=== PATIENT | male | born 1940 | race Caucasian/White ===

== ENCOUNTER → 2018-03-09 | Outpatient (CLI) | payer OTHER | LOC: FIMAGING 14:08 | PROVIDERS: ATTEND Internal Medicine | DX: I87.1 Compression of vein (principal) ==

== ENCOUNTER → 2018-03-15 | Outpatient (CLI) | payer OTHER ==
[~2018-03-15] MED LIST: IOPAMIDOL (ISOVUE-300) 100 ML BTL ONE
== END ==
LOC: FIMAGING 07:30
PROVIDERS: ATTEND Internal Medicine
DX: I87.1 Compression of vein (principal)
CPT/HCPCS: 71260; Q9967; 82565-PO

== ENCOUNTER → 2018-04-02 | Outpatient (CLI) | payer OTHER ==
[~2018-04-02] MED LIST changes: +IOPAMIDOL (ISOVUE 370) 100 ML BTL IV ONE; -IOPAMIDOL (ISOVUE-300) 100 ML BTL ONE
== END ==
LOC: FIMAGING 13:03
PROVIDERS: ATTEND Surgery
DX: I87.1 Compression of vein (principal); I86.8 Varicose veins of other specified sites; K57.30 Diverticulosis of large intestine without perforation or abscess without bleeding
CPT/HCPCS: 74174; Q9967

== ENCOUNTER 2018-05-27 07:22 | Day surgery (SDC) | payer OTHER ==
[2018-05-27] MEDS ORDERED: IOPAMIDOL (ISOVUE-300) 100 ML BTL ONE (07:57)
[2018-05-27] MEDS ORDERED: LIDOCAINE 1% 300 MG/30 ML SDV ONE (07:58)
--- NOTE | 2018-05-27 08:41 | PDPROPOC ---
[facility] Plan of Care ASA Classification: ASA 2 Mallampati Score: Class 2 Mallampati Reference Image:
--- NOTE | 2018-05-27 08:41 | PDRADPRE ---
Radiology History & Physical Indication for procedure: other (SVC occlusion) Home medications: Lisinopril 2.5 mg 05/21/18 [Last Taken 05/26/181999] Metoprolol Tartrate 50 mg 05/21/18 [Last Taken 05/26/181999] Allergies/Adverse Reactions: No Known Allergies Allergy (Verified 05/27/18 07:53) Mental status: A&Ox3
[2018-05-27] MEDS ORDERED: ENOXAPARIN 100 MG/ML SYR SC SCH (13:30)
[2018-05-27] MEDS ORDERED: ONDANSETRON 4 MG/2 ML VIAL IVP PRN (13:59)
[2018-05-27] MEDS ORDERED: ACETAMINOPHEN 325 MG TAB PO PRN (13:59)
== END 2018-05-27 17:15 | disposition home or self-care (01) ==
LOC: FIMAGING 07:22
PROVIDERS: ATTEND Radiology Diagnostic Radiology
PROC: 027V3ZZ Dilation of Superior Vena Cava, Percutaneous Approach (ICD-10-PCS; principal; 2018-05-27)
DX: I87.1 Compression of vein (principal)
CPT/HCPCS: 37248; 75820; 76937; 99152; 99153; C1769; C1773; C1892; C1894; C1725; J1644; J1650; Q9967